=== PATIENT | female | born 1950 | race Caucasian/White ===

== ENCOUNTER 2025-07-30 08:05 | Outpatient (CLI) | payer MEDICARE | END 2025-07-30 08:06 | disposition home or self-care (01) | LOC: SCSMRI 08:05 | PROVIDERS: ATTEND Family Medicine Sports Medicine | DX: M47.816 Spondylosis without myelopathy or radiculopathy, lumbar region (principal); M16.11 Unilateral primary osteoarthritis, right hip; M48.061 Spinal stenosis, lumbar region without neurogenic claudication; M48.07 Spinal stenosis, lumbosacral region | CPT/HCPCS: 72148 ==